=== PATIENT | female | born 1990 | race Caucasian/White ===

== ENCOUNTER 2016-08-12 11:46 | Emergency (ER) | payer MEDICAID, OTHER ==
[~2016-08-12] VITALS: Ht 165.1 cm; Wt 65.9 kg
[~2016-08-12 11:46] MED LIST: IBUP800T23 PO; PERC5TAB12 PO; ZOLO50TA PO
[2016-08-12 11:48] VITALS: BP 132/95; PULSE 84; RESP 16; TEMP 98.3; O2SAT 100
[2016-08-12 12:28] LABS: BACTERIA, URINE RARE /hpf; BLOOD, URINE MOD (NEG); COMMENT (UR) CULT NOT INDICATED; CULTURE IF INDICATED CULT NOT INDICATED; GLUCOSE,URINE NEG (NEG); KETONE, URINE NEG (NEG); NITRITE,URINE NEG (NEG); SQUAMOUS EPITHELIAL CELL URINE <1 /hpf (0-5); URINE COLOR LIGHT-YELLOW (YELLW/STRAW)
[2016-08-12] MEDS ORDERED: SODIUM CHLOR 0.9% 1000 ML INJ 1,000 ML IV ONE (13:45)
--- NOTE | 2016-08-12 13:52 | PD ---
HPI Chief Complaint: Distributing Clerk Problem/Complaint Time Seen by Provider: 13:47 Travel History International Travel<30 days: No Contact w/Intl Traveler<30days: No Traveled to known affect area: No History of Present Illness HPI 26-year-old female presents to the emergency department for evaluation of pelvic pain, heavy menstrual cycle. Patient states she has went 6 large tampons since waking up this morning. She states that she does not have history of heavy menstrual cycles. She reports history of anemia and states that she feels dizzy at this time. No syncope. No fevers or chills. She has reported history of tubal ligation and denies . Patient states that her pelvic pain is more severe than normal. Patient reports no chronic medical problems or and takes no prescribed medications. Patient is and denies risk of STI. No abnormal vaginal discharge. PFSH Past Medical History Anemia: Yes Depression: Yes Cardiovascular Problems: Yes (PALPITATIONS W/ ANXIETY) Diminished Hearing: No Immunizations Current: Yes : 2 Para: 2 Social History Alcohol Use: No Tobacco Use: No Substance Use: No Allergies-Medications (Allergen,Severity, Reaction): Coded Allergies: No Known Allergies (Verified , 05/23/14) Reported Meds & Prescriptions Reported Meds & Active Scripts Active Percocet 5-325 mg (Oxycodone/Acetaminophen) Oxycodone 5/325 Acetaminophen Tab 1- 2 Tab PO Q6H PRN Reported Zoloft (Sertraline HCl) 50 Mg Tab 50 Mg PO DAILY Ibuprofen 800 Mg Tab 800 Mg PO Q6H PRN Review of Systems Except as stated in HPI: all other systems reviewed are Neg Physical Exam Narrative GENERAL: Well-nourished, well-developed female patient, ambulatory. Afebrile. SKIN: Focused skin assessment warm/dry. HEAD: Normocephalic. Atraumatic. EYES: No scleral icterus. No injection or drainage. NECK: Supple, trachea midline. No JVD or lymphadenopathy. CARDIOVASCULAR: Regular rate and rhythm without murmurs, gallops, or rubs. RESPIRATORY: Breath sounds equal bilaterally. No accessory muscle use. Lungs sounds are clear to auscultation. GASTROINTESTINAL: Abdomen soft and nondistended. Patient has pelvic pain to palpation. MUSCULOSKELETAL: No cyanosis, or edema. BACK: Nontender without obvious deformity. No CVA tenderness. GENITOURINARY: Normal external genitalia without lesions or erythema. Vaginal vault with blood, but no drainage. Cervical os with blood noted, but no drainage. No cervical motion tenderness. Uterus nontender and nonenlarged. Bilateral adnexa nontender without masses. Exam was done with JOSE Wilson, at bedside. Data Data Last Documented VS Vital Signs Date Time Temp Pulse Resp B/P Pulse Ox O2 Delivery O2 Flow Rate FiO2 08/12/16 11:48 98.3 84 16 132/95 100 Room Air Orders Urinalysis - C+S If Indicated (08/12/16 11:59) Ed Urine Pregnancytest Poc (08/12/16 11:59) Complete Blood Count With Diff (08/12/16 13:45) Comprehensive Metabolic Panel (08/12/16 13:45) Gc And Chlamydia Pcr (08/12/16 13:45) Type And Screen (08/12/16 13:45) Us Pelvis Comp Distributing Clerk/Non-Preg (08/12/16 ) Wet Prep Profile (08/12/16 13:45) Iv Access Insert/Monitor (08/12/16 13:45) Sodium Chlor 0.9% 1000 Ml Inj (Ns 1000 M (08/12/16 13:45) Ketorolac Inj (Toradol Inj) (08/12/16 15:15) Labs Laboratory Tests Test 08/12/16 08/12/16 08/12/16 12:08 14:15 14:20 Urine Color LIGHT-YELLOW Urine Turbidity CLEAR Urine pH 7.0 Urine Specific [place] 1.003 Urine Protein NEG mg/dL Urine Glucose (UA) NEG mg/dL Urine Ketones NEG mg/dL Urine Occult Blood MOD Urine Nitrite NEG Urine Bilirubin NEG Urine Urobilinogen LESS THAN 2.0 MG/DL Urine Leukocyte Esterase NEG Urine RBC 3 /hpf Urine WBC 1 /hpf Urine Squamous Epithelial <1 /hpf Cells Urine Bacteria RARE /hpf Microscopic Urinalysis Comment CULT NOT INDICATED White Blood Count 6.8 TH/MM3 Red Blood Count 4.60 MIL/MM3 Hemoglobin 11.5 GM/DL Hematocrit 35.8 % Mean Corpuscular Volume 77.8 FL Mean Corpuscular Hemoglobin 25.1 PG Mean Corpuscular Hemoglobin 32.3 % Concent Red Cell Distribution Width 15.4 % Platelet Count 363 TH/MM3 Mean Platelet Volume 8.3 FL Neutrophils (%) (Auto) 50.8 % Lymphocytes (%) (Auto) 38.0 % Monocytes (%) (Auto) 8.1 % Eosinophils (%) (Auto) 2.5 % Basophils (%) (Auto) 0.6 % Neutrophils # (Auto) 3.5 TH/MM3 Lymphocytes # (Auto) 2.6 TH/MM3 Monocytes # (Auto) 0.6 TH/MM3 Eosinophils # (Auto) 0.2 TH/MM3 Basophils # (Auto) 0.0 TH/MM3 CBC Comment DIFF FINAL Differential Comment Sodium Level 139 MEQ/L Potassium Level 3.9 MEQ/L Chloride Level 105 MEQ/L Carbon Dioxide Level 28.5 MEQ/L Anion Gap 6 MEQ/L Blood Urea Nitrogen 3 MG/DL Creatinine 0.84 MG/DL Estimat Glomerular Filtration 83 ML/MIN Rate Random Glucose 79 MG/DL Calcium Level 9.3 MG/DL Total Bilirubin 0.2 MG/DL Aspartate Amino Transf 21 U/L (AST/SGOT) Alanine Aminotransferase 32 U/L (ALT/SGPT) Alkaline Phosphatase 74 U/L Total Protein 7.9 GM/DL Albumin 4.0 GM/DL Blood Type O POSITIVE Antibody Screen NEGATIVE Blood Bank Comment Clue Cells (Wet Prep) NONE SEEN Vaginal Trichomonas (Wet Prep) NONE SEEN Vaginal Yeast (Wet Prep) NONE SEEN MDM Medical Decision Making Medical Screen Exam Complete: Yes Emergency Medical Condition: Yes Medical Record Reviewed: Yes Interpretation(s) Last Impressions Pelvis Ultrasound 08/12/16 0000 Signed Impressions: Service Date/Time: , August 12, 2016 14:30 - CONCLUSION: 1. Normal sonographic appearance of the uterus and bilateral ovaries. No free fluid. Brent Yi MD Differential Diagnosis Anemia versus menstrual cramping versus ovarian cyst Narrative Course 26-year-old female presents to the emergency department for evaluation of heavy menstrual cycle, pelvic pain without previous history of the same. CBC, CMP, UA , UPT, type and screen are ordered and pending. Patient gives verbal consent for pelvic exam. Pelvic US is ordered and pending. Patient is given NS 1 liter IV bolus. CBC shows a hemoglobin 11.5, hematocrit 35.8, normal WBC of 6.8. CMP shows no acute abnormality. Wet prep is negative for clue cells, Trichomonas, yeast. UA is negative for acute infection. UPT is negative. Patient denies risk for STDs and is currently . There is no evidence of cervicitis on pelvic exam. Lab work is reassuring. Pelvic ultrasound is normal. Patient is instructed on need to follow up with a environmental engineering manager. She'll be discharged with a prescription for ibuprofen for pain. The patient was discharged in stable condition with instructions, including return instructions and follow up instructions. Diagnosis Primary Impression: Acute pelvic pain, female Referrals: [employer] call for appointment Patient Instructions: General Instructions, Pelvic Pain in Women (ED) Departure Forms: Tests/Procedures, Work Release Enter return to work date: Aug 14, 2016 Additional Instructions: Take ibuprofen as directed as needed with food for pain. Follow-up with a environmental engineering manager. Return to the emergency department for any acute worsening of symptoms. Med/Other Pt SpecificInfo: Prescription(s) given Scripts Ibuprofen 800 Mg [id number] Mg PO TID PRN (PAIN SCALE 1 TO 10) #21 TAB Ref 0 Prov:Tracie Cuenca 08/12/16 Disposition: 01 DISCHARGE HOME Condition: Stable Tracie Cuenca Aug 12, 2016 13:52
[2016-08-12 14:53] LABS: AUTOMATED NEUTROPHIL # 3.5 TH/MM3 (1.8-7.7); BASOPHIL % 0.6 % (0.0-2.0); EOSINOPHIL # 0.2 TH/MM3 (0-0.4); EOSINOPHIL % 2.5 % (0.0-4.0); HEMATOCRIT 35.8 % (35.0-46.0); HEMO FLAGS DIFF FINAL; LYMPHOCYTE # 2.6 TH/MM3 (1.0-4.8); MEAN CELL VOLUME 77.8 FL (80.0-100.0); MEAN CORPUSCULAR HEMOGLOBIN 25.1 PG (27.0-34.0); MEAN CORPUSCULAR HGB CONC 32.3 % (32.0-36.0); MONO % 8.1 % (0.0-8.0); NEUT % 50.8 % (16.0-70.0); PLATELET COUNT 363 TH/MM3 (150-450); RED CELL DISTRIBUTION WIDTH 15.4 % (11.6-17.2); WHITE BLOOD COUNT 6.8 TH/MM3 (4.0-11.0)
--- NOTE | 2016-08-12 15:11 | RADRPT ---
EXAM DATE/TIME: 08/12/2016 14:30 [facility] COMPARISON: US PELVIS - COMPLETE (CALKER,NON-PREG), July 09, 2010, 15:30. INDICATIONS : Pelvic pain. MEDICAL HISTORY : Depression. Anemia. Heavy bleeding. SURGICAL HISTORY : Tubal ligation. ENCOUNTER: Initial ACUITY: 2 days PAIN SCORE: 6/10 LOCATION: Bilateral pelvis MEASUREMENTS: UTERUS: 7.8 x 4.6 x 4.7 cm ENDOMETRIAL STRIPE: 7 mm RIGHT OVARY: 4.2 x 1.8 x 2.6 cm LEFT OVARY: 3.3 x 2.3 x 1.5 cm FINDINGS: UTERUS: The myometrium has homogeneous echotexture without mass. RIGHT OVARY: Ovary contains no mass or significant cystic lesion. LEFT OVARY: Ovary contains no mass or significant cystic lesion. MISCELLANEOUS: No free fluid. CONCLUSION: 1. Normal sonographic appearance of the uterus and bilateral ovaries. No free fluid. Brent Yi MD on August 12, 2016 at 15:06 Board Certified Radiologist. This report was verified electronically.
[2016-08-12] MEDS ORDERED: KETOROLAC TROMETHAMINE 30 MG/ML (IVP) VIAL IV PUSH ONE (15:15)
[2016-08-12 15:16] LABS: ALT (GPT) 32 U/L (10-53); ANION GAP 6 MEQ/L (5-15); AST (GOT) 21 U/L (15-37); BICARBONATE 28.5 MEQ/L (21.0-32.0); BLOOD UREA NITROGEN 3 MG/DL (7-18); CHLORIDE 105 MEQ/L (98-107); GLOMERULAR FILTRATION RATE 83 ML/MIN (>89); POTASSIUM 3.9 MEQ/L (3.5-5.1); SODIUM (NA) 139 MEQ/L (136-145)
[2016-08-12 15:18] LABS: ALKALINE PHOSPHATASE 74 U/L (45-117); TOTAL BILIRUBIN ADULT 0.2 MG/DL (0.2-1.0)
[2016-08-12] MEDS ORDERED: IBUP800T23 PO (15:43)
[2016-08-12 15:44] VITALS: BP 130/86
[2016-08-12] MEDS ORDERED: EXCETAB30 PO (15:46)
[2016-08-12 17:58] LABS: CHLAMYDIA PCR DETECTED (NOT DETECT); NEISSERIA PCR NOT DETECTED (NOT DETECT)
== END 2016-08-12 15:48 | disposition home or self-care (01) ==
LOC: NEPD 11:46
DX: R10.2 Pelvic and perineal pain (principal); D64.9 Anemia, unspecified
CPT/HCPCS: 76856; 80053; 81001; 84703; 85025; 86850; 86900; 86901; 87210; 87491; 87591; 96361; 96374; 99284; J1885; J7030

== ENCOUNTER 2016-11-03 08:59 | Emergency (ER) | payer MEDICAID, OTHER ==
[~2016-11-03] VITALS: Ht 165.1 cm; Wt 60.0 kg
[~2016-11-03 08:59] MED LIST changes: +EXCETAB30 PO; -PERC5TAB12 PO; -ZOLO50TA PO
[2016-11-03 09:01] VITALS: BP 134/90; PULSE 76; RESP 20; TEMP 98.1; O2SAT 100
[2016-11-03 09:44] LABS: AUTOMATED NEUTROPHIL # 4.7 TH/MM3 (1.8-7.7); BASOPHIL % 0.3 % (0.0-2.0); EOSINOPHIL # 0.1 TH/MM3 (0-0.4); EOSINOPHIL % 0.8 % (0.0-4.0); HEMATOCRIT 37.5 % (35.0-46.0); HEMO FLAGS DIFF FINAL; LYMPH % 18.4 % (9.0-44.0); LYMPHOCYTE # 1.2 TH/MM3 (1.0-4.8); MEAN CELL VOLUME 77.2 FL (80.0-100.0); MEAN CORPUSCULAR HEMOGLOBIN 25.6 PG (27.0-34.0); MEAN CORPUSCULAR HGB CONC 33.1 % (32.0-36.0); MONO % 8.1 % (0.0-8.0); NEUT % 72.4 % (16.0-70.0); PLATELET COUNT 318 TH/MM3 (150-450); RED BLOOD COUNT 4.86 MIL/MM3 (4.00-5.30); RED CELL DISTRIBUTION WIDTH 17.8 % (11.6-17.2); WHITE BLOOD COUNT 6.5 TH/MM3 (4.0-11.0)
[2016-11-03 10:04] LABS: BICARBONATE 26.3 MEQ/L (21.0-32.0); POTASSIUM 3.5 MEQ/L (3.5-5.1)
--- NOTE | 2016-11-03 10:26 | PD ---
HPI Chief Complaint: GI Complaint Time Seen by Provider: 09:58 Travel History International Travel<30 days: No Contact w/Intl Traveler<30days: No Traveled to known affect area: No History of Present Illness HPI This is a 26-year-old female who reports that every morning for the past 2-3 week she's been vomiting. This morning she has a headache but she's not had a headache throughout. She says that she's been having some epigastric discomfort , intermittent, moderate severity, with no associated fevers or chills. She's not had any black stools or dark stools. She used to take Pepcid routinely for GERD-like symptoms but she stopped it 3-4 months ago. The patient reports this morning she vomited and she had some blood in her vomit which concerned her so she came to the emergency department. [facility] Past Medical History Anemia: Yes Depression: Yes Cardiovascular Problems: Yes (PALPITATIONS W/ ANXIETY) Diminished Hearing: No Immunizations Current: Yes ?: Not LMP: CAN'T REMEMBER : 2 Para: 2 Tubal Ligation: Yes Past Surgical History Genitourinary Surgery: Yes (tubal ) Social History Alcohol Use: No Tobacco Use: Yes Substance Use: No Allergies-Medications (Allergen,Severity, Reaction): Coded Allergies: No Known Allergies (Verified , 08/12/16) Reported Meds & Prescriptions Reported Meds & Active Scripts Active Reported Excedrin Migraine Caplet (Aspirin/Acetaminophen/Caffeine) 1 Each Tablet 1 Tab PO DAILY PRN Review of Systems Except as stated in HPI: all other systems reviewed are Neg Physical Exam Narrative GENERAL:Well appearing, no acute distress SKIN: Focused skin assessment warm and dry. HEAD: Atraumatic. Normocephalic. EYES: Pupils equal and round. No injection or drainage. ENT: Moist mucous membranes NECK: Trachea midline. CARDIOVASCULAR: Regular rate and rhythm. No murmur appreciated. RESPIRATORY: Clear to auscultation. Breath sounds equal bilaterally. GASTROINTESTINAL: Abdomen soft, tender to palpation in the epigastrium with no rebound or guarding. MUSCULOSKELETAL: No obvious deformities. NEUROLOGICAL: Awake and alert. No obvious cranial nerve deficits. No dysarthria or aphasia. No ataxia. Normal visual friedman. PSYCHIATRIC: Appropriate mood and affect; insight and judgment normal. Data Data Last Documented VS Vital Signs Date Time Temp Pulse Resp B/P (MAP) Pulse Ox O2 Delivery O2 Flow Rate FiO2 11/03/16 09:01 98.1 76 20 134/90 (105) 100 Room Air Orders Orders Complete Blood Count With Diff (11/03/16 09:07) Basic Metabolic Panel (Bmp) (11/03/16 09:07) Ondansetron Odt (Zofran Odt) (11/03/16 10:30) Acetaminophen (Tylenol) (11/03/16 10:30) Labs Laboratory Tests Test 11/03/16 09:25 White Blood Count 6.5 TH/MM3 Red Blood Count 4.86 MIL/MM3 Hemoglobin 12.4 GM/DL Hematocrit 37.5 % Mean Corpuscular Volume 77.2 FL Mean Corpuscular Hemoglobin 25.6 PG Mean Corpuscular Hemoglobin Concent 33.1 % Red Cell Distribution Width 17.8 % Platelet Count 318 TH/MM3 Mean Platelet Volume 8.3 FL Neutrophils (%) (Auto) 72.4 % Lymphocytes (%) (Auto) 18.4 % Monocytes (%) (Auto) 8.1 % Eosinophils (%) (Auto) 0.8 % Basophils (%) (Auto) 0.3 % Neutrophils # (Auto) 4.7 TH/MM3 Lymphocytes # (Auto) 1.2 TH/MM3 Monocytes # (Auto) 0.5 TH/MM3 Eosinophils # (Auto) 0.1 TH/MM3 Basophils # (Auto) 0.0 TH/MM3 CBC Comment DIFF FINAL Differential Comment Blood Urea Nitrogen 5 MG/DL Creatinine 0.82 MG/DL Random Glucose 91 MG/DL Calcium Level 9.4 MG/DL Sodium Level 139 MEQ/L Potassium Level 3.5 MEQ/L Chloride Level 106 MEQ/L Carbon Dioxide Level 26.3 MEQ/L Anion Gap 7 MEQ/L Estimat Glomerular Filtration Rate 85 ML/MIN MDM Medical Decision Making Medical Screen Exam Complete: Yes Emergency Medical Condition: Yes Interpretation(s) No anemia No leukocytosis Electrolytes are reassuring Differential Diagnosis Gastritis, Lu-Gomes tear, peptic ulcer disease, cholelithiasis, cholecystitis, pancreatitis, brain tumor Narrative Course This is a 26-year-old female who presents to the emergency department with vomiting and some blood in her vomit this morning. She says she's been having headaches a year. She has a normal neurologic exam so I don't suspect increased intracranial pressure and I don't think she requires any neuro imaging in the emergency department. She had a normal Hemoccult and her hemoglobin is reassuring so I don't think she requires inpatient endoscopy but I do think she requires evaluation as an outpatient. I suspect she has a Lu-Gomes tear she's been vomiting every morning that she also may have some gastritis or peptic ulcer disease. She was advised to reinitiate Zantac every day and she will be prescribed with antiemetics. I asked her to return to the emergency department in 2 days for recheck if she continues to vomit blood but if she improves she can just follow up with her primary care physician at her scheduled appointment later this month. Diagnosis Primary Impression: Hematemesis Qualified Codes: K92.0 - Hematemesis; R11.0 - Nausea Patient Instructions: General Instructions Additional Instructions: If you continue to vomit blood, feel lightheaded or dizzy return to the emergency department. Start taking Zantac twice a day. If he develops fever, severe abdominal pain, severe headaches, difficulty walking or talking return to the emergency department. Follow-up with your primary care physician as soon as possible. Med/Other Pt SpecificInfo: Prescription(s) given Scripts Promethazine (Promethazine) 12.5 Mg Tab 12.5 MG PO Q6H Y for NAUSEA OR VOMITING, #14 TAB 0 Refills Prov: Paola Fontaine MD 11/03/16 Ranitidine (Zantac) 150 Mg Tab 150 MG PO BID for Reduce Stomach Acid, #60 TAB 0 Refills Prov: Paola Fontaine MD 11/03/16 Disposition: 01 DISCHARGE HOME Condition: Stable Paola Fontaine MD Nov 03, 2016 10:26
[2016-11-03] MEDS ORDERED: ACETAMINOPHEN 500 MG CPLT PO ONE (10:30)
[2016-11-03] MEDS ORDERED: ONDANSETRON ODT 4 MG TAB PO ONE (10:30)
[2016-11-03] MEDS ORDERED: ZANT150T2 PO (10:31)
[2016-11-03] MEDS ORDERED: PROM12.54 PO (10:31)
[2016-11-03 10:44] LABS: INDIRECT BILIRUBIN 0.3 MG/DL (0.0-0.8); TOTAL BILIRUBIN ADULT 0.5 MG/DL (0.2-1.0)
== END 2016-11-03 10:43 | disposition home or self-care (01) ==
LOC: NEPD 08:59
DX: K92.0 Hematemesis (principal)
CPT/HCPCS: 80048; 80076; 83690; 85025; 99284

== ENCOUNTER 2016-11-04 10:26 | Emergency (ER) | payer MEDICAID, OTHER ==
[~2016-11-04] VITALS: Ht 165.1 cm; Wt 65.0 kg
[~2016-11-04 10:26] MED LIST changes: -IBUP800T23 PO; +PROM12.54 PO; +ZANT150T2 PO
[2016-11-04 10:28] VITALS: BP 136/100; PULSE 72; RESP 20; TEMP 98.4; O2SAT 99
[2016-11-04 10:45] VITALS: BP 132/92; PULSE 78; RESP 18; O2SAT 98
--- NOTE | 2016-11-04 10:45 | PD ---
HPI Chief Complaint: Psychiatric Symptoms Time Seen by Provider: 10:45 Travel History International Travel<30 days: No Contact w/Intl Traveler<30days: No Traveled to known affect area: No History of Present Illness HPI 26-year-old female came to the emergency room with depression and suicidal ideation. Patient says that this has been going on for past 2 months. She's been having constant thoughts and plans. She has not done anything to herself yet patient in fact was here in the emergency room yesterday for vomiting blood. Had blood test done and they were within normal limit and she was discharged home. She says that she did not mention to them about the depression yesterday. Vital signs are stable. She came in voluntarily. She has history of depression and stopped taking her medications and 2016. Patient denies any alcohol or drugs in the past 1 month. She was fully sober and answering questions appropriately. [facility] Past Medical History Narrative Medical List of her past medical, surgical, social and family history was reviewed from the nursing note. Anemia: Yes Anxiety: Yes Depression: Yes Cardiovascular Problems: Yes (PALPITATIONS W/ ANXIETY) Diminished Hearing: No Immunizations Current: Yes ?: Not : 2 Para: 2 Tubal Ligation: Yes Past Surgical History Genitourinary Surgery: Yes (tubal ) Social History Alcohol Use: No Tobacco Use: Yes Substance Use: No Allergies-Medications (Allergen,Severity, Reaction): Coded Allergies: No Known Allergies (Verified , 11/04/16) Comments No known drug allergies. Reported Meds & Prescriptions Reported Meds & Active Scripts Active Zoloft (Sertraline HCl) 100 Mg Tab 100 Mg PO DAILY Narrative Medication List of her home medications reviewed from the nursing note. Review of Systems Except as stated in HPI: all other systems reviewed are Neg Physical Exam Narrative GENERAL: Awake, alert, flat affect SKIN: Focused skin assessment warm/dry. HEAD: Atraumatic. Normocephalic. EYES: Pupils equal and round. No scleral icterus. No injection or drainage. ENT: No nasal bleeding or discharge. Mucous membranes pink and moist. NECK: Trachea midline. No JVD. CARDIOVASCULAR: Regular rate and rhythm. No murmur appreciated. RESPIRATORY: No accessory muscle use. Clear to auscultation. Breath sounds equal bilaterally. GASTROINTESTINAL: Abdomen soft, non-tender, nondistended. Hepatic and splenic margins not palpable. MUSCULOSKELETAL: No obvious deformities. No clubbing. No cyanosis. No edema. NEUROLOGICAL: Awake and alert. No obvious cranial nerve deficits. Motor grossly within normal limits. Normal speech. PSYCHIATRIC: Appropriate mood and affect; insight and judgment normal. Data Data Last Documented VS Vital Signs Date Time Temp Pulse Resp B/P (MAP) Pulse Ox O2 Delivery O2 Flow Rate FiO2 11/05/16 15:15 11/05/16 09:58 18 11/05/16 06:18 94 98 Room Air 11/04/16 10:28 98.4 Orders Orders Psych Screen (11/04/16 10:49) ^ Sitter (11/04/16 10:49) Diet Regular Basic (11/05/16 Breakfast) Ibuprofen (Motrin) (11/05/16 08:45) Diet Regular Basic (11/05/16 Lunch) MDM Medical Decision Making Medical Screen Exam Complete: Yes Emergency Medical Condition: Yes Medical Record Reviewed: Yes Differential Diagnosis Major depression, suicidal ideation Narrative Course 11:36 AM patient is medically cleared based on clinical exam. She had blood test done less than 24 hours ago which was within normal limits. She is fully sober currently. Denies being since she has her tubes tied. Patient will require psych screen. He does have a sitter. Currently she is voluntary but I have mentioned to her that if she plans to leave she will be [employer]. Patient understands this. Procedures EKG Prior to Arrival: No Scripts Sertraline (Zoloft) 100 Mg Tab 100 MG PO DAILY, #30 TAB 1 Refill Prov: Jace Hooper MD 11/05/16 Lane Guardado MD Nov 04, 2016 10:45
[2016-11-04 16:27] VITALS: BP 108/67; PULSE 92; RESP 20; O2SAT 99
[2016-11-04 17:35] VITALS: BP 108/67; PULSE 92; RESP 20; O2SAT 99
[2016-11-05 06:18] VITALS: BP 132/79; PULSE 94; RESP 17; O2SAT 98
[2016-11-05] MEDS ORDERED: IBUPROFEN 800 MG TAB PO ONE (08:45)
[2016-11-05 09:58] VITALS: RESP 18
[2016-11-05] MEDS ORDERED: ZOLO100T PO (13:46)
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
--- NOTE | 2016-11-05 15:01 | PD ---
Physical Exam Date Seen by Provider: Nov 05, 2016 Time Seen by Provider: 16:02 Data Data Last Documented VS Vital Signs Date Time Temp Pulse Resp B/P (MAP) Pulse Ox O2 Delivery O2 Flow Rate FiO2 11/05/16 15:15 11/05/16 09:58 18 11/05/16 06:18 94 98 Room Air 11/04/16 10:28 98.4 Orders Orders Psych Screen (11/04/16 10:49) ^ Sitter (11/04/16 10:49) Diet Regular Basic (11/05/16 Breakfast) Ibuprofen (Motrin) (11/05/16 08:45) Diet Regular Basic (11/05/16 Lunch) MDM Supervised Visit with LEO: No Narrative Course 26-year-old female with complaint of depression and suicidal ideation. Patient was medically cleared by Dr. Gómez. Please see her note for those details. Patient was cleared from a psychiatric standpoint by Dr. Hooper. Please see his note for those details. On my exam the patient denies suicidal ideation. She has no physical complaints. GENERAL: Well-nourished, well-developed female in no acute distress SKIN: Focused skin assessment warm/dry. HEAD: Normocephalic. EYES: No scleral icterus. No injection or drainage. NECK: Supple, trachea midline. No JVD or lymphadenopathy. CARDIOVASCULAR: Regular rate and rhythm without murmurs, gallops, or rubs. RESPIRATORY: Breath sounds equal bilaterally. No accessory muscle use. GASTROINTESTINAL: Abdomen soft, non-tender, nondistended. MUSCULOSKELETAL: No cyanosis, or edema. BACK: Nontender without obvious deformity. No CVA tenderness. Patient was provided a prescription for Zoloft. She has a plan for follow-up with her primary care or psychiatrist after discharge. She is stable and discharged home. Diagnosis Primary Impression: Adjustment disorder with depressed mood Referrals: Primary Care Physician Psychiatrist Additional Instruction: Take medications as prescribed. Follow-up as discussed with the psychiatrist. Return to the ED for any urgent or emergent medical condition. Scripts Sertraline (Zoloft) 100 Mg Tab 100 MG PO DAILY, #30 TAB 1 Refill Prov: Jace Hooper MD 11/05/16 Disposition: 01 DISCHARGE HOME Condition: Stable Anabel Oneill Nov 05, 2016 15:01
== END 2016-11-05 15:58 | disposition home or self-care (01) ==
LOC: NEPD 10:26 → NEPJ 11-05 15:58
DX: F43.21 Adjustment disorder with depressed mood (principal); R45.851 Suicidal ideations; F41.9 Anxiety disorder, unspecified; Z72.0 Tobacco use
CPT/HCPCS: 99285